=== PATIENT | female | born 1975 | race Caucasian/White ===

== ENCOUNTER → 2021-12-04 | Outpatient (CLI) | payer OTHER | LOC: M WUC 11:31 | PROVIDERS: ATTEND Physician Assistant Medical | DX: M25.561 Pain in right knee (principal) ==

== ENCOUNTER → 2021-12-10 | Outpatient (CLI) | payer OTHER | LOC: M RAD 15:33 | PROVIDERS: ATTEND Physician Assistant Medical | DX: M79.604 Pain in right leg (principal) ==

== ENCOUNTER → 2023-11-06 | Outpatient (REF) | payer OTHER ==
[2023-11-06 18:31] LABS: FOLATE 18.1 NG/ML (>5.4)
[2023-11-06 18:32] LABS: PERCENT SATURATION 27.7 % (13.2-45.0)
== END ==
LOC: M LAB REF 16:48
PROVIDERS: ATTEND Internal Medicine
DX: Z98.84 Bariatric surgery status (principal)

== ENCOUNTER 2023-12-15 09:24 | Day surgery (SDC) | payer OTHER ==
[~2023-12-15] VITALS: Ht 172.7 cm; Wt 81.4 kg
[~2023-12-15 09:24] MED LIST: BUPR300T92 PO; METF10004 PO; TOPI-21 PO; VICT18IN2 SQ
[2023-12-15] MEDS: NS 1,000 ML IV ONE (09:50)
[2023-12-15 12:03] VITALS: TEMP 98
[2023-12-15 12:17] VITALS: BP 116/66; O2SAT 100
== END 2023-12-15 12:26 | disposition home or self-care (01) ==
LOC: M OPP 09:24
PROVIDERS: ATTEND Internal Medicine Gastroenterology
DX: Z12.11 Encounter for screening for malignant neoplasm of colon (principal); K64.8 Other hemorrhoids; Z90.710 Acquired absence of both cervix and uterus; Z80.0 Family history of malignant neoplasm of digestive organs; R73.03 Prediabetes; Z79.84 Long term (current) use of oral hypoglycemic drugs; Z79.899 Other long term (current) drug therapy

== ENCOUNTER → 2024-12-07 | Outpatient (REF) | payer OTHER ==
[~2024-12-07] MED LIST changes: +BUPR-597 PO; -BUPR300T92 PO
[2024-12-07 19:03] LABS: PERCENT SATURATION 26.6 % (13.2-45.0); PHOSPHORUS LEVEL 4.1 MG/DL (2.5-4.9)
[2024-12-07 19:05] LABS: FERRITIN 120.4 NG/ML (7.3-270.7); TOTAL 25(OH) VITAMIN D 17.1 NG/ML (20.0-100.0)
[2024-12-07 19:06] LABS: FOLATE 11.2 NG/ML (>5.4)
== END ==
LOC: M LAB REF 16:18
PROVIDERS: ATTEND Internal Medicine
DX: Z98.84 Bariatric surgery status (principal)